=== PATIENT | female | born 1950 | race Caucasian/White ===

== ENCOUNTER 2020-08-27 11:46 | Outpatient (NON) | payer MEDICARE, SELFPAY ==
[2020-08-27 20:47] LABS: SARS-CoV-2 RNA PCR Positive
== END 2020-08-27 11:47 ==
PROVIDERS: PCP Internal Medicine; Visit Provider Internal Medicine
DX: R68.89 Other general symptoms and signs (principal); Z20.828 Contact with and (suspected) exposure to other viral communicable diseases
CPT/HCPCS: 87635; C9803; U0003